=== PATIENT | male | born 1990 | race Caucasian/White ===

== ENCOUNTER 2016-12-15 16:49 | Emergency (ER) | payer OTHER ==
[2016-12-15] MEDS ORDERED: ONDANSETRON 4 MG TAB.RAPDIS PO ONE (18:57)
[2016-12-15] MEDS ORDERED: OXYCODONE-ACETAMINOPHEN 5-325 MG TABLET PO ONE (18:57)
--- NOTE | 2016-12-15 18:59 | ER Document Report ---
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 He reports about 10 AM this morning he developed some discomfort in the left anterior chest that he felt may have been muscle strain. It got worse during the day and acutely worse about 3 PM. He states it hurts deep in the left chest when he breathes. No cough or URI symptoms. Having the patient try to lift my weight up off the floor using the left arm does not reproduce the pain. Palpation does not reproduce the pain. Pain is deep inside and is felt when he takes a deep breath or coughs. I have greeted and performed a rapid initial assessment of this patient. A comprehensive ED assessment and evaluation of the patient, analysis of test results and completion of the medical decision making process will be conducted by additional ED providers. TRAVEL OUTSIDE OF THE [place] IN LAST 30 DAYS: No - Related Data Allergies/Adverse Reactions: erythromycin base [Erythromycin Base] Allergy (Verified 11/07/14 21:13) Penicillins Allergy (Verified 11/07/14 21:13) prednisone [Prednisone] Allergy (Verified 11/07/14 21:13) Past Medical History Renal/ Medical History: Denies: Hx Peritoneal Dialysis Past Surgical History: Reports: Hx Kidney (Renal Surgery) - Immunizations Hx Diphtheria, Pertussis, Tetanus Vaccination: No Physical Exam - Vital signs Vitals: Temp Pulse Resp BP Pulse Ox 98.4 F 95 18 143/83 H 97 12/15/16 17:08 12/15/16 17:08 12/15/16 17:08 12/15/16 17:08 12/15/16 17:08 Course - Vital Signs Vital signs: Temp Pulse Resp BP Pulse Ox 98.4 F 95 18 143/83 H 97 12/15/16 17:08 12/15/16 17:08 12/15/16 17:08 12/15/16 17:08 12/15/16 17:08
[2016-12-15 19:26] LABS: ABSOLUTE BASOPHILS # (AUTO) 0.1 10^3/uL (0.0-0.2); ABSOLUTE EOSINOPHILS # (AUTO) 0.2 10^3/uL (0.0-0.6); ABSOLUTE LYMPHOCYTES (AUTO) 3.6 10^3/uL (0.5-4.7); ABSOLUTE MONOCYTES (AUTO) 1.1 10^3/uL (0.1-1.4); ABSOLUTE NEUT (AUTO) 6.4 10^3/uL (1.7-8.2); BASOPHILS % (AUTO) 0.6 % (0-2); EOSINOPHILS % (AUTO) 1.5 % (0-6); HEMATOCRIT 46.1 % (37.9-51.0); HEMOGLOBIN 14.9 g/dL (13.5-17.0); HGB HCT DIFFERENCE -1.4; LYMPHOCYTES % (AUTO) 31.8 % (13-45); MEAN CORPUSCULAR HEMOGLOBIN 30.3 pg (27.0-33.4); MEAN CORPUSCULAR HGB CONC 32.2 g/dL (32.0-36.0); MEAN CORPUSCULAR VOLUME 94 fl (80-97); MONOCYTES % (AUTO) 9.8 % (3-13); RED BLOOD COUNT 4.91 10^6/uL (4.35-5.55); RED CELL DISTRIBUTION WIDTH 13.1 % (11.5-14.0); SEGMENTED NEUTROPHILS % (AUTO) 56.3 % (42-78); WHITE BLOOD COUNT 11.3 10^3/uL (4.0-10.5)
--- NOTE | 2016-12-15 19:50 | RADIOLOGY REPORT (SQ) ---
EXAM DESCRIPTION: CHEST PA/LAT COMPLETED DATE/TIME: 12/15/2016 7:40 pm REASON FOR STUDY: Left pleuritic chest pain COMPARISON: 11/07/2014 EXAM PARAMETERS: NUMBER OF VIEWS: two views TECHNIQUE: Digital Frontal and Lateral radiographic views of the chest acquired. RADIATION DOSE: NA LIMITATIONS: none FINDINGS: LUNGS AND PLEURA: No acute opacities, masses or pneumothorax. No pleural effusion. MEDIASTINUM AND HILAR STRUCTURES: No masses or contour abnormalities. HEART AND VASCULAR STRUCTURES: Heart normal size. No evidence for failure. BONES: No acute findings. HARDWARE: None in the chest. OTHER: No other significant finding. IMPRESSION: No acute findings. TECHNICAL DOCUMENTATION: JOB ID: [id number] [employer]- All Rights Reserved
--- NOTE | 2016-12-15 20:23 | ER Document Report ---
ED Cardiac - General Mode of Arrival: Ambulatory Information source: Patient TRAVEL OUTSIDE OF THE [place] IN LAST 30 DAYS: No - HPI Patient complains to provider of: Chest pain, Chest tightness, Shortness of breath Was the onset of pain: Sudden Chest pain location: Substernal, Axillary, Back Quality of pain: Intermittent Cardiac risk factors: Smoker - former, + Family history Associated symptoms: Other - see notes above <RAZ BLANCAS - Last Filed: 12/15/16 20:36> <MERY AWAN - Last Filed: 12/16/16 04:44> - General Chief Complaint: Chest Pain Stated Complaint: CHEST PAIN Time Seen by Provider: 12/15/16 20:16 Notes: 26-year-old male with no history of cardiac disease presents to the ED complaining of chest "soreness" that started this morning which progressed to chest pain and shortness of breath that started at approximately 1400 this afternoon. Patient describes his pain as if someone was "pulling his chest apart" which radiates to his left axilla and back and worsens intermittently. Patient is also complaining of pain with deep breathing. Patient denies having pain like this before, but is concerned because his mother and maternal grandmother both were diagnosed with mitral valve prolapse in their early 20s. Patient reports to being sore over the last few days. (RAZ BLANCAS) - Related Data Allergies/Adverse Reactions: erythromycin base [Erythromycin Base] Allergy (Verified 11/07/14 21:13) Penicillins Allergy (Verified 11/07/14 21:13) prednisone [Prednisone] Allergy (Verified 11/07/14 21:13) Past Medical History - General Information source: Patient - Social History Smoking Status: Former Smoker Chew tobacco use (# tins/day): No Drug Abuse: None Family History: Other - Mother and maternal grandmother have mitral valve prolapse diagnosed in early 20s. Patient has suicidal ideation: No Patient has homicidal ideation: No Renal/ Medical History: Denies: Hx Peritoneal Dialysis Past Surgical History: Reports: Hx Kidney (Renal Surgery) - Immunizations Hx Diphtheria, Pertussis, Tetanus Vaccination: No <RAZ BLANCAS - Last Filed: 12/15/16 20:36> Review of Systems - Review of Systems Constitutional: No symptoms reported EENT: No symptoms reported Cardiovascular: See HPI, Chest pain - radiates to left axilla and back Respiratory: See HPI, Hurts to breathe, Short of breath Gastrointestinal: No symptoms reported Genitourinary: No symptoms reported Male Genitourinary: No symptoms reported Musculoskeletal: No symptoms reported Skin: No symptoms reported Hematologic/Lymphatic: No symptoms reported Neurological/Psychological: No symptoms reported -: Yes All other systems reviewed and negative <RAZ BLANCAS - Last Filed: 12/15/16 20:36> Physical Exam - General General appearance: Alert In distress: None - HEENT Head: Normocephalic, Atraumatic Eyes: Normal Extraocular movements intact: Yes Pupils: PERRL - Respiratory Respiratory status: No respiratory distress Breath sounds: Normal - Cardiovascular Rhythm: Regular Heart sounds: Normal auscultation - Abdominal Inspection: Normal - Back Back: Normal, Nontender - Extremities General upper extremity: Normal inspection, Normal ROM General lower extremity: Normal inspection, Normal ROM - Neurological Neuro grossly intact: Yes Cognition: Normal Orientation: AAOx4 Bert Coma Scale Eye Opening: Spontaneous Bert Coma Scale Verbal: Oriented [place] Coma Scale Motor: Obeys Commands [place] Coma Scale Total: 15 Speech: Normal - Psychological Associated symptoms: Normal affect, Normal mood - Skin Skin Temperature: Warm Skin Moisture: Dry Skin Color: Normal <RAZ BLANCAS - Last Filed: 12/15/16 20:36> Course - Laboratory Result Diagrams: 12/15/16 19:08 <RAZ BLANCAS - Last Filed: 12/15/16 20:36> - Laboratory Result Diagrams: 12/15/16 19:08 12/15/16 21:10 - Diagnostic Test Radiology reviewed: Reports reviewed - EKG Interpretation by Id EKG shows normal: Sinus rhythm Rate: Normal Rhythm: NSR <MERY AWAN - Last Filed: 12/16/16 04:44> - Re-evaluation Re-evalutation: Patient appears well. No acute findings on blood work, EKG, chest x-ray. Reproducible chest wall pain. Follow-up with PMD. Stable for discharge. (MERY AWAN) - Vital Signs Vital signs: Temp Pulse Resp BP Pulse Ox 98.4 F 89 17 132/81 H 98 12/15/16 17:08 12/15/16 23:28 12/15/16 23:28 12/15/16 23:28 12/15/16 23:28 - Laboratory Laboratory results interpreted by me: 12/15/16 12/15/16 19:08 21:10 WBC 11.3 H Potassium 5.1 H ALT 106 H Discharge <RAZ BLANCAS - Last Filed: 12/15/16 20:36> <MERY AWAN - Last Filed: 12/16/16 04:44> - Discharge Clinical Impression: Atypical chest pain Condition: Stable Disposition: HOME, SELF-CARE Instructions: Chest Wall Pain ([facility]) Forms: Return to Work Scribe Attestation: 12/16/16 04:44 I personally performed the services described in the documentation, reviewed and edited the documentation which was dictated to the scribe in my presence, and it accurately records my words and actions. (MERY AWAN) Scribe Documentation - Scribe Written by Scribe:: Prince Hutton, [id number] acting as scribe for :: Tomasa <RAZ BLANCAS - Last Filed: 12/15/16 20:36>
--- NOTE | 2016-12-15 20:32 | EKG REPORT ---
SEVERITY:- NORMAL ECG - SINUS RHYTHM : Confirmed by: Henry Hall MD 15-Dec-2016 20:31:31
[2016-12-15 21:48] LABS: ALANINE AMINOTRANSFERASE 106 U/L (21-72); ALBUMIN 4.7 g/dL (3.5-5.0); ALKALINE PHOSPHATASE 83 U/L (38-126); ANION GAP 12 (5-19); ASPARTATE AMINO TRANSFERASE 52 U/L (17-59); BILIRUBIN,DIRECT 0.3 mg/dL (0.0-0.4); BILIRUBIN,TOTAL 0.5 mg/dL (0.2-1.3); BLOOD UREA NITROGEN 12 mg/dL (7-20); CALCIUM 9.9 mg/dL (8.4-10.2); CARBON DIOXIDE 29 mmol/L (22-30); CHLORIDE 101 mmol/L (98-107); CREATINE KINASE 56 U/L (55-170); CREATININE RESULT 0.87 mg/dL (0.52-1.25); GLUCOSE 94 mg/dL (75-110); POTASSIUM 5.1 mmol/L (3.6-5.0); SODIUM 142.3 mmol/L (137-145); TOTAL PROTEIN 8.2 g/dL (6.3-8.2)
[2016-12-15] MEDS ORDERED: KETOROLAC TROMETHAMINE INJ/PF 30 MG/1 ML SDV IV ONE (22:19)
[2016-12-15 23:29] VITALS: BP 132/81
== END 2016-12-15 23:28 | disposition home or self-care (01) ==
LOC: ER 16:49
DX: R07.89 Other chest pain (principal); R06.02 Shortness of breath; Z88.0 Allergy status to penicillin; Z88.3 Allergy status to other anti-infective agents; Z87.891 Personal history of nicotine dependence
CPT/HCPCS: 93005; 99285; 96374; 36415; 82550; 85025; 80053; 84484; 85379; 71020; 93010; S0119; J1885